=== PATIENT | female | born 1970 | race Two or more races ===

== ENCOUNTER 2018-10-24 16:24 | Emergency (ER) | payer SELFPAY ==
[~2018-10-24] VITALS: Ht 152.4 cm; Wt 77.6 kg
[2018-10-24 18:32] VITALS: BP 127/85
== END 2018-10-24 19:00 | disposition home or self-care (01) ==
LOC: ER 16:34
DX: M79.671 Pain in right foot (principal); Z88.6 Allergy status to analgesic agent; W01.0XXA Fall on same level from slipping, tripping and stumbling without subsequent striking against object, initial encounter; Y93.89 Activity, other specified; Y92.89 Other specified places as the place of occurrence of the external cause; Y99.8 Other external cause status
CPT/HCPCS: 73630; 99283; L3260